=== PATIENT | male | born 1970 | race American Indian/Alaskan Native ===

== ENCOUNTER 2016-06-29 23:20 | Emergency (ER) | payer OTHER ==
[2016-06-30 00:35] VITALS: BP 160/95; PULSE 89; TEMP 97.8; BMI 26.2
[2016-06-30] MEDS ORDERED: IBUPROFEN 400 MG TABLET (FP) PO ONE ×2 (00:56→00:58)
--- NOTE | 2016-06-30 00:56 | PDOC ---
History of Present Illness <Hanna Gutiérrez - Last Filed: 06/30/16 01:02> - History of Present Illness Initial Comments: 06/30/16 01:04 The patient is a 46 year old male with no past medical hx who presents to the ED complaining of a toothache for three days. The patient reports his pain is localized to the right upper mouth. He notes pain to his second molar. The patient has no further complaints at this time. <Eli Mullins - Last Filed: 06/30/16 01:05> - General Chief Complaint: Toothache Stated Complaint: TOOTHACHE Time Seen by Provider: 06/30/16 00:53 Past History - Psycho/Social/Smoking Cessation Hx Suicidal Ideation: No Smoking History: Never smoked Have you smoked in the past 12 months: No Information on smoking cessation initiated: No Hx Alcohol Use: No Drug/Substance Use Hx: No <Hanna Gutiérrez - Last Filed: 06/30/16 01:02> <Eli Mullins - Last Filed: 06/30/16 01:05> - Past Medical History Allergies/Adverse Reactions: Allergies Allergy/AdvReac Type Severity Reaction Status Date / Time No Known Allergies Allergy Verified 06/30/16 00:33 Home Medications: Ambulatory Orders Ibuprofen [Motrin -] 600 mg PO TID PRN #21 tablet 06/30/16 Oxycodone HCl/Acetaminophen [Percocet 5-325 mg Tablet] 1 tab PO BID #6 tablet MDD 2 06/30/16 Review of Systems - Review of Systems Able to Perform ROS?: Yes Comments:: 06/30/16 01:04 CONSTITUTIONAL: Absent: fever, no chills, no fatigue EYES: Absent: visual changes ENT: +Tooth pain. Absent: ear pain, no sore throat CARDIOVASCULAR: Absent: chest pain, no palpitations RESPIRATORY: Absent: cough, no SOB GI: Absent: abdominal pain, no nausea, no vomiting, no constipation, no diarrhea GENITOURINARY: Absent: dysuria, no frequency, no hematuria MUSCULOSKELETAL: Absent: back pain, no arthralgia, no myalgia SKIN: Absent: rash NEURO: Absent: headache <Eli Mullins - Last Filed: 06/30/16 01:05> *Physical Exam - Vital Signs Last Vital Signs Temp Pulse Resp BP Pulse Ox 97.8 F 89 14 160/95 98 06/30/16 00:33 06/30/16 00:33 06/30/16 00:33 06/30/16 00:33 06/30/16 00:33 <Hanna Gutiérrez - Last Filed: 06/30/16 01:02> - Vital Signs Last Vital Signs Temp Pulse Resp BP Pulse Ox 97.8 F 89 14 160/95 98 06/30/16 00:33 06/30/16 00:33 06/30/16 00:33 06/30/16 00:33 06/30/16 00:33 - Physical Exam Comments: 06/30/16 01:05 GENERAL: Well-appearing, well-nourished. No apparent distress. HEENT: +Pain to his second molar upper right side of mouth, no abscesses, no fluctuation at the root. Normocephalic, atraumatic. PERRL, EOM intact. CARDIOVASCULAR: Normal S1, S2. Regular rate and rhythm. PULMONARY: Clear to auscultation bilaterally. ABDOMEN: Soft, non-distended, non-tender. EXTREMITIES: Normal ROM in all four extremities. No gross deformities. SKIN: Warm, dry. No rash NEUROLOGICAL: No focal neurological deficits. <Eli Mullins - Last Filed: 06/30/16 01:05> ED Treatment Course - Medications Given in the ED: ED Medications Discontinued Medications Generic Name Dose Route Start Last Admin Trade Name Freq PRN Reason Stop Dose Admin Ibuprofen 800 mg 06/30/16 00:56 06/30/16 00:59 Motrin - PO 06/30/16 00:57 800 mg ONCE ONE Administration Oxycodone/Acetaminophen 1 combo 06/30/16 00:57 06/30/16 00:59 Percocet 5/325 - PO 06/30/16 00:58 1 combo ONCE ONE Administration <Eli Mullins - Last Filed: 06/30/16 01:05> *DC/Admit/Observation/Transfer <Hanna Gutiérrez - Last Filed: 06/30/16 01:02> - Attestations Scribe Attestion: 06/30/16 01:05 Documentation prepared by Eli Mullins, acting as medical anthropology director for Hanna Gutiérrez MD/DO. <Eli Mullins - Last Filed: 06/30/16 01:05> Diagnosis at time of Disposition: Toothache - Discharge Dispostion Disposition: HOME Condition at time of disposition: Stable - Prescriptions Prescriptions: Ibuprofen [Motrin -] 600 mg PO TID PRN #21 tablet PRN Reason: For Toothache Oxycodone HCl/Acetaminophen [Percocet 5-325 mg Tablet] 1 tab PO BID #6 tablet MDD 2 - Referrals Referrals: Scot Linn MD [Primary Care Provider] - - Patient Instructions Printed Discharge Instructions: DI for Dental Pain Additional Instructions: please followup with your dentist this week
[2016-06-30] MEDS ORDERED: OXYCODONE/APAP 5/325MG COMBO TABLET PO ONE (00:57)
[2016-06-30] MEDS ORDERED: OXYCODONE/APAP 5/325MG COMBO TABLET ONE (00:58)
== END 2016-06-30 01:23 | disposition home or self-care (01) ==
LOC: JER 23:20
DX: K08.89 Other specified disorders of teeth and supporting structures (principal)
CPT/HCPCS: 99282-25

== ENCOUNTER 2020-06-15 15:01 | Emergency (ER) | payer OTHER ==
[2020-06-15 15:13] VITALS: BMI 25.8
[2020-06-15] MEDS ORDERED: LACTATED RINGERS SOLUTION 1000 ML INFUS.BAG IV ONE (15:54)
[2020-06-15] MEDS ORDERED: ACETAMINOPHEN 1000 MG/100 ML VIAL (NON FORMULARY) IVPB ONE (15:54)
[2020-06-15] MEDS ORDERED: ACETAMINOPHEN INJECTION 100 ML IVPB ONE (16:11)
[2020-06-15 16:39] LABS: BASO % 0.2 % (0-2.0); EOS % 0.4 % (0-4.5); HEMATOCRIT 41.8 % (35.4-49); HEMOGLOBIN 14.2 GM/dL (11.7-16.9); LYMPH % 16.3 % (8-40); MCH 28.5 pg (25.7-33.7); MCHC 33.9 g/dl (32.0-35.9); MEAN CELL VOLUME 84.2 fl (80-96); MEAN PLT VOLUME 8.3 fl (7.5-11.1); MONO % 8.5 % (3.8-10.2); NEUT % 74.6 % (42.8-82.8); PLATELET COUNT 218 K/MM3 (134-434); RBC 4.96 M/mm3 (4.00-5.60); RDW 13.4 % (11.9-15.9); WHITE BLOOD COUNT 14.6 K/mm3 (4.0-10.0)
[2020-06-15 16:50] LABS: CHLORIDE 109 mmol/L (98-107); SODIUM 143 mmol/L (136-145)
[2020-06-15 16:53] LABS: CALCIUM 9.3 mg/dL (8.5-10.1)
[2020-06-15 16:54] LABS: ALBUMIN 3.6 g/dl (3.4-5.0); BLOOD UREA NITROGEN 6.6 mg/dL (7-18); CO2 27 mmol/L (21-32); GLUCOSE,RANDOM 100 mg/dL (74-106)
[2020-06-15 16:57] LABS: CREATININE 0.9 mg/dL (0.55-1.3); SGOT/AST 21 U/L (15-37); SGPT/ALT 31 U/L (13-61)
[2020-06-15 16:58] LABS: BILIRUBIN,TOTAL 0.6 mg/dL (0.2-1); TOT PROT 7.5 g/dl (6.4-8.2)
[2020-06-15 17:00] LABS: ALK PHOS 114 U/L (45-117)
[2020-06-15 17:05] LABS: ANION GAP 6 MMOL/L (8-16); POTASSIUM 3.5 mmol/L (3.5-5.1)
[2020-06-15 17:22] VITALS: BP 140/90; PULSE 87; TEMP 99.3
[2020-06-15 17:55] LABS: URINE APPEARANCE CLEAR; URINE BILIRUBIN NEGATIVE (NEGATIVE); URINE COLOR YELLOW; URINE GLUCOSE (UA) NEGATIVE (NEGATIVE); URINE KETONE NEGATIVE (NEGATIVE); URINE LEUK ESTERASE NEGATIVE (NEGATIVE); URINE NITRITE NEGATIVE (NEGATIVE); URINE PROTEIN NEGATIVE (NEGATIVE); URINE UROBILINOGEN 0.2 mg/dL (0.2-1.0)
== END 2020-06-15 18:43 | disposition home or self-care (01) ==
LOC: JER 15:01
PROC: 3E0333Z Introduction of Anti-inflammatory into Peripheral Vein, Percutaneous Approach (ICD-10-PCS; principal; 2020-06-15)
DX: K57.92 Diverticulitis of intestine, part unspecified, without perforation or abscess without bleeding (principal)
CPT/HCPCS: 36415; 71045-TC-FY; 74177-TC; 80053; 81003; 84484; 85025; 87086; 93005; 93010; 99285-25; J0131; Q9967

== ENCOUNTER 2021-05-14 13:53 | Inpatient (IN) | payer OTHER ==
[2021-05-14] MEDS ORDERED: ACETAMINOPHEN 1000 MG/100 ML BAG IVPB ONE (14:29)
[2021-05-14] MEDS ORDERED: KETOROLAC TROMETHAMINE 30 MG/1 ML VIAL IVPUSH ONE (14:29)
[2021-05-14] MEDS ORDERED: PANTOPRAZOLE SODIUM 40 MG VIAL IVPB ONE (14:29)
[2021-05-14] MEDS ORDERED: SODIUM CHLORIDE 1,000 ML IV STA (14:29)
[2021-05-14] MEDS ORDERED: ACETAMINOPHEN INJECTION 100 ML IVPB ONE (14:38)
[2021-05-14] MEDS ORDERED: PANTOPRAZOLE SODIUM 40 MG/100 ML BAG IVPB ONE (14:38)
[2021-05-14] MEDS ORDERED: KETOROLAC TROMETHAMINE 30 MG/1 ML VIAL ONE (14:39)
[2021-05-14 15:27] LABS: EPI CELLS 1 /uL (0-25.1); HYALINE CASTS 0 /uL (0-3.1); URINE APPEARANCE CLEAR; URINE BACTERIA 3 /uL (0-1359); URINE BILIRUBIN NEGATIVE (NEGATIVE); URINE COLOR YELLOW; URINE GLUCOSE (UA) NEGATIVE (NEGATIVE); URINE KETONE NEGATIVE (NEGATIVE); URINE LEUK ESTERASE NEGATIVE (NEGATIVE); URINE NITRITE NEGATIVE (NEGATIVE); URINE PROTEIN NEGATIVE (NEGATIVE); URINE RBC 373 /uL (0-23.9); URINE UROBILINOGEN 0.2 mg/dL (0.2-1.0); URINE WBC 2 /uL (0-25.8)
[2021-05-14 15:32] LABS: INR 1.02 (0.83-1.09); PROTHROMBIN TIME (PATIENT) 11.7 SEC (9.7-13.0)
[2021-05-14 15:34] LABS: ACTIVATED PTT 19.8 SECONDS (25.2-36.5)
[2021-05-14 15:48] LABS: BASO % 0.6 % (0-2.0); EOS % 0.6 % (0-4.5); HEMATOCRIT 42.9 % (35.4-49); HEMOGLOBIN 14.2 GM/dL (11.7-16.9); LYMPH % 12.1 % (8-40); MCH 27.9 pg (25.7-33.7); MCHC 33.2 g/dl (32.0-35.9); MEAN CELL VOLUME 83.9 fl (80-96); MEAN PLT VOLUME 8.6 fl (7.5-11.1); MONO % 5.9 % (3.8-10.2); NEUT % 80.8 % (42.8-82.8); PLATELET COUNT 294 10^3/uL (134-434); RBC 5.11 M/mm3 (4.00-5.60); RDW 13.7 % (11.9-15.9); WHITE BLOOD COUNT 12.6 K/mm3 (4.0-10.0)
[2021-05-14 15:53] LABS: BLOOD UREA NITROGEN 10.1 mg/dL (7-18); CALCIUM 9.2 mg/dL (8.5-10.1)
[2021-05-14 15:54] LABS: ALBUMIN 4.1 g/dl (3.4-5.0); MAGNESIUM 2.2 mg/dL (1.8-2.4)
[2021-05-14 15:56] LABS: CREATININE 0.9 mg/dL (0.55-1.3)
[2021-05-14 15:57] LABS: PHOSPHOROUS 3.1 mg/dL (2.5-4.9)
[2021-05-14 15:58] LABS: BILIRUBIN,TOTAL 0.5 mg/dL (0.2-1); TOT PROT 8.3 g/dl (6.4-8.2)
[2021-05-14] MEDS ORDERED: morphine CARPU-JECT 4 MG/1 ML DISP.SYRIN IVPUSH ONE (16:58)
[2021-05-14] MEDS ORDERED: morphine SULFATE 4 MG/ML VIAL ONE (17:06)
[2021-05-14] MEDS ORDERED: CEFTRIAXONE 1,000 MG in DEXTROSE 5%-WATER - 50 ML IVPB ONE (17:41)
[2021-05-14] MEDS ORDERED: SODIUM CHLORIDE 0.9% 500 ML INFUS.BAG IV ONE (17:41)
[2021-05-14] MEDS ORDERED: TAMSULOSIN HCL 0.4 MG CAP PO ONE (17:41)
[2021-05-14] MEDS ORDERED: CEFTRIAXONE 1 GM/50 ML BAG ONE (17:56)
[2021-05-14] MEDS ORDERED: TAMSULOSIN HCL 0.4 MG CAP ONE (17:56)
[2021-05-14] MEDS ORDERED: ACETAMINOPHEN 1000 MG/100 ML BAG IVPB PRN (22:11)
[2021-05-14] MEDS ORDERED: SODIUM CHLORIDE 1,000 ML IV SCH (22:15)
[2021-05-15 00:01] VITALS: BMI 28.5
[2021-05-15] MEDS ORDERED: TAMSULOSIN HCL 0.4 MG CAP PO SCH (08:30)
[2021-05-15 09:27] LABS: BASO % 0.3 % (0-2.0); EOS % 1.5 % (0-4.5); HEMATOCRIT 40.4 % (35.4-49); HEMOGLOBIN 13.7 GM/dL (11.7-16.9); LYMPH % 21.4 % (8-40); MCH 28.4 pg (25.7-33.7); MCHC 33.9 g/dl (32.0-35.9); MEAN PLT VOLUME 7.4 fl (7.5-11.1); MONO % 6.1 % (3.8-10.2); NEUT % 70.7 % (42.8-82.8); PLATELET COUNT 224 10^3/uL (134-434); RBC 4.81 M/mm3 (4.00-5.60); RDW 13.4 % (11.9-15.9); WHITE BLOOD COUNT 7.7 K/mm3 (4.0-10.0)
[2021-05-15] MEDS ORDERED: cefTRIAXone SODIUM 1 GM VIAL ONE (09:31)
[2021-05-15] MEDS ORDERED: DEXTROSE 5%-WATER - 50 ML IVPB ONE (09:31)
[2021-05-15 09:54] LABS: ALBUMIN 3.6 g/dl (3.4-5.0); BLOOD UREA NITROGEN 8.1 mg/dL (7-18); CALCIUM 8.4 mg/dL (8.5-10.1)
[2021-05-15 09:57] LABS: CREATININE 0.7 mg/dL (0.55-1.3)
[2021-05-15 09:59] LABS: BILIRUBIN,TOTAL 0.7 mg/dL (0.2-1); TOT PROT 7.2 g/dl (6.4-8.2)
[2021-05-15] MEDS ORDERED: CEFTRIAXONE 1 GM in DEXTROSE 5%-WATER - 50 ML IVPB SCH (10:00)
[2021-05-15] MEDS ORDERED: MAGNESIUM 1GM/D5W - 1 GM/100 ML IVPB IVPB ONE (10:30)
[2021-05-15] MEDS ORDERED: POTASSIUM CHLORIDE 10 MEQ in SODIUM CHLORIDE 1,000 ML IVPB SCH (11:00)
[2021-05-15 11:31] LABS: PHOSPHOROUS 3.1 mg/dL (2.5-4.9)
[2021-05-15] MEDS: KCL 10 MEQ IVPB 10 MEQ/100 ML INFUS.BAG IVPB SCH ×3 (11:59→17:06)
[2021-05-15] MEDS ORDERED: MIDAZOLAM HCL 2 MG/2 ML SINGLE DOSE VIAL ONE (14:59)
[2021-05-15] MEDS ORDERED: PROPOFOL 20 ML ONE (14:59)
[2021-05-15] MEDS ORDERED: ceFAZolin SODIUM 1 GM VIAL IVPB ONE (15:10)
[2021-05-15] MEDS ORDERED: LIDOCAINE HCL 2% JELLY 10 ML CARTRIDGE ONE (15:17)
[2021-05-15] MEDS ORDERED: LIDOCAINE HCL 2% JELLY 10 ML CARTRIDGE TP ONE (15:30)
[2021-05-15] MEDS ORDERED: ONDANSETRON 4 MG/2 ML VIAL IVPUSH PRN (15:56)
[2021-05-15] MEDS ORDERED: LACTATED RINGERS SOLUTION 1,000 ML IV SCH (16:00)
[2021-05-15] MEDS ORDERED: oxyCODONE HCL 5 MG TABLET PO PRN (17:09)
[2021-05-15] MEDS ORDERED: ACETAMINOPHEN 325 MG TABLET (FP) PO PRN (17:09)
[2021-05-15] MEDS ORDERED: CEPHALEXIN MONOHYDRATE 500 MG CAPSULE (UD) PO SCH (18:00)
[2021-05-15 18:09] VITALS: BP 153/94; PULSE 86; TEMP 97.9
[2021-05-16] MEDS ORDERED: LOSARTAN POTASSIUM 50 MG TABLET PO SCH (10:00)
[2021-05-16] MEDS ORDERED: amLODIPine BESYLATE 5 MG TABLET (FP) PO SCH (10:00)
== END 2021-05-15 18:40 | disposition home or self-care (01) | DRG 465 ==
LOC: JER 13:53 → JERBED 17:55 → J5S 20:36
PROVIDERS: ADMIT Internal Medicine; ATTEND Internal Medicine
PROC: 0T768DZ Dilation of Right Ureter with Intraluminal Device, Via Natural or Artificial Opening Endoscopic (ICD-10-PCS; principal; 2021-05-15 10:30)
PROC: BT1DZZZ Fluoroscopy of Right Kidney, Ureter and Bladder (ICD-10-PCS; 2021-05-15 10:30)
DX: N13.2 Hydronephrosis with renal and ureteral calculous obstruction (principal); I11.0 Hypertensive heart disease with heart failure; I50.9 Heart failure, unspecified; D72.829 Elevated white blood cell count, unspecified; E87.6 Hypokalemia; I10 Essential (primary) hypertension
CPT/HCPCS: 36415; 74177-TC; 76000-TC-FY; 80053; 81003; 83690; 83735; 84100; 85025; 85610; 85730; 87040; 87086; 93005; 93010; 94760; 99285-25; C9803; Q9967; U0003; U0005

== ENCOUNTER 2021-06-03 04:14 | Day surgery (SDC) | payer OTHER ==
[2021-06-02 12:39] VITALS: BMI 26.6
[2021-06-03] MEDS ORDERED: PROPOFOL 20 ML ONE (15:41)
[2021-06-03] MEDS ORDERED: MIDAZOLAM HCL 2 MG/2 ML SINGLE DOSE VIAL ONE (15:41)
[2021-06-03] MEDS ORDERED: ceFAZolin SODIUM 1 GM VIAL IVPB ONE (15:58)
[2021-06-03] MEDS ORDERED: IOHEXOL 300 MG/ML INFUS..BTL IV ONE (16:18)
[2021-06-03] MEDS ORDERED: oxyCODONE HCL 5 MG TABLET PO PRN ×2 (16:33)
[2021-06-03] MEDS ORDERED: ONDANSETRON 4 MG/2 ML VIAL IVPUSH PRN (16:33)
[2021-06-03] MEDS ORDERED: PROMETHAZINE HCL 25 MG/1 ML VIAL IVPUSH PRN (16:33)
[2021-06-03] MEDS ORDERED: LACTATED RINGERS SOLUTION 1,000 ML IV SCH (16:45)
[2021-06-03 17:23] VITALS: TEMP 97.5
[2021-06-03 17:58] VITALS: BP 150/94; PULSE 76
== END 2021-06-03 17:50 | disposition home or self-care (01) ==
LOC: JASU-SURG 04:14
PROVIDERS: ATTEND Urology
PROC: 0TC68ZZ Extirpation of Matter from Right Ureter, Via Natural or Artificial Opening Endoscopic (ICD-10-PCS; principal; 2021-06-03 15:00)
PROC: 0T768DZ Dilation of Right Ureter with Intraluminal Device, Via Natural or Artificial Opening Endoscopic (ICD-10-PCS; 2021-06-03 15:00)
PROC: BT1DYZZ Fluoroscopy of Right Kidney, Ureter and Bladder using Other Contrast (ICD-10-PCS; 2021-06-03 15:00)
DX: N20.1 Calculus of ureter (principal)
CPT/HCPCS: 74420-TC-FY; 76000-TC-FY; 94760